=== PATIENT | male | born 1945 | race Caucasian/White ===

== ENCOUNTER 2018-01-08 17:40 | Emergency (ER) | payer OTHER ==
[~2018-01-08] VITALS: Ht 170.2 cm; Wt 70.3 kg
[2018-01-08] MEDS ORDERED: FORTAMET1000 MG (17:48)
[2018-01-08] MEDS ORDERED: LISINOPRIL1 GM (17:48)
[2018-01-08] MEDS ORDERED: AMLODIPINE BESI25 GM (17:49)
== END 2018-01-08 19:31 | disposition home or self-care (01) ==
LOC: ER 17:40
DX: G89.29 Other chronic pain (principal); M54.89 Other dorsalgia; M54.2 Cervicalgia

== ENCOUNTER 2018-03-12 13:31 | Emergency (ER) | payer OTHER ==
[~2018-03-12] VITALS: Ht 167.6 cm; Wt 70.3 kg
[~2018-03-12 13:31] MED LIST: AMLODIPINE BESI25 GM; FORTAMET1000 MG; LISINOPRIL1 GM
== END 2018-03-12 22:25 | disposition home or self-care (01) ==
LOC: ER 13:31
DX: R42 Dizziness and giddiness (principal); R51 Headache

== ENCOUNTER 2018-09-24 10:23 | Outpatient (CLI) | payer OTHER | END 2018-09-24 10:29 | disposition home or self-care (01) | LOC: RAD 10:23 | DX: R07.89 Other chest pain (principal) ==

== ENCOUNTER 2018-11-23 14:12 | Emergency (ER) | payer OTHER ==
[~2018-11-23] VITALS: Ht 170.2 cm; Wt 70.3 kg
== END 2018-11-23 15:00 | disposition home or self-care (01) ==
LOC: ER 14:12
DX: M54.89 Other dorsalgia (principal)

== ENCOUNTER 2023-09-04 15:40 | Emergency (ER) | payer OTHER ==
[~2023-09-04] VITALS: Ht 152.4 cm; Wt 61.2 kg
[2023-09-04] MEDS ORDERED: ONDANSETRON HCL 2 MG/ML VIAL IV ONE (16:45)
[2023-09-04] MEDS ORDERED: MECLIZINE HCL 25 MG TABLET PO ONE (16:45)
[2023-09-04] MEDS ORDERED: 0.9 % SODIUM CHLORIDE 1,000 ML IV SCH (16:45)
[2023-09-04 17:17] LABS: HEMATOCRIT 40.4 % (39.0-48.0); HEMOGLOBIN 13.9 g/dL (13-16.00); MEAN CELL VOLUME 92.4 fL (80.0-100.00); MEAN CORPUSCULAR HEMOGLOBIN 31.8 pg (27.00-32.0); MEAN CORPUSCULAR HGB CONC 34.4 g/dl (32.0-36.0); PLATELET COUNT 280 K/uL (150-450); RED BLOOD COUNT 4.38 M/uL (4.00-6.00)
[2023-09-04 17:39] LABS: ALBUMIN 4.3 gm/dL (3.4-5.0); BILIRUBIN TOTAL 0.38 mg/dL (0.3-1.2); CALCIUM 9.7 mg/dL (8.5-10.1); CREATININE SERUM 1.07 mg/dL (0.70-1.30); GFR 66.67; GLOBULINA 4.2 G/DL (2.4-3.5); POTASSIUM 4.29 mEq/L (3.5-5.1); TOTAL PROTEIN 8.5 gm/dL (6.4-8.2)
[2023-09-04] MEDS ORDERED: MEDI-MECLIZINE25 MG PO (19:33)
== END 2023-09-04 19:43 | disposition home or self-care (01) ==
LOC: ER 15:40
PROVIDERS: General Practice
DX: R42 Dizziness and giddiness (principal); I10 Essential (primary) hypertension; E11.9 Type 2 diabetes mellitus without complications; Z79.84 Long term (current) use of oral hypoglycemic drugs
CPT/HCPCS: 70450; 93005; 96365; 96366; 99284; J2405; J7030